=== PATIENT | female | born 1990 | race Caucasian/White ===

== ENCOUNTER 2017-06-09 11:27 | Emergency (ER) | payer MEDICAID, OTHER ==
[2017-06-09 11:50] VITALS: BP 124/80
[2017-06-09] MEDS ORDERED: ORPHENADRINE CITRATE 30 MG/ML VIAL IM ONE (11:54)
[2017-06-09] MEDS ORDERED: KETOROLAC TROMETHAMINE 60 MG/2 ML VIAL IM ONE ×2 (11:54)
[2017-06-09] MEDS ORDERED: ORPHENADRINE CITRATE 30 MG/ML VIAL ONE (11:54)
--- NOTE | 2017-06-09 12:21 | ERNOTE ---
Head Injury HPI - General Injury to: other Time Seen by Provider: 06/09/17 11:51 Source: patient Exam Limitations: no limitations - Immun/Allergies/Home Medications Immunization: IMMUNIZATION HX Immunizations Up to Date No History of Influenza Vaccine No Hx Pneumococcal Vaccination No Allergies/Adverse Reactions: Allergies Allergy/AdvReac Type Severity Reaction Status Date / Time No Known Drug Allergies Allergy Unknown Verified 04/27/14 19:11 Home Medications: HOME MEDICATIONS Cyclobenzaprine HCl [Flexeril] 10 mg PO TID PRN #30 tab 06/09/17 [Last Taken Unknown] Naproxen [Naprosyn] 500 mg PO BID #60 tablet 06/09/17 [Last Taken Unknown] - History of Present Illness Narrative: Patient was getting out of bed this morning and believe she possibly turn somewhat awkwardly and had a jarring affect in the neck. She now has difficulty turning her head in any direction and complains of muscle spasm. Rates pain as being at least moderate in severity. Occurred: just prior to arrival Location Occurred: home Severity: moderate Method of Injury: Reports: unknown Loss of Consciousness: Reports: no loss of consciousness Associated Symptoms: Reports: denies symptoms Review of Systems - Review of Systems Constitutional: Present: See HPI EYE: Present: no symptoms reported ENT: Present: no symptoms reported Respiratory: Present: no symptoms reported Cardiology: Present: no symptoms reported Gastrointestinal/Abdominal: Present: no symptoms reported Genitourinary: Present: no symptoms reported Musculoskeletal: Present: muscle stiffness, neck pain Skin: Present: no symptoms reported Neurological: Present: no symptoms reported Endocrine: Present: no symptoms reported Hematologic/Lymphatic: Present: no symptoms reported Psych: Present: no symptoms reported - Patient's Past Medical History Patient History - Medical: No pertinent hx Patient History - Cardiac/Respiratory: No pertinent hx Patient History - Cancer: No Hx of Cancer Patient History - Surgical Procedures: Orthopedic Patient History - Other: None - Social History Living Situations: home Abuse History: No History of abuse Psych History: No pertinent hx Smoking Status: Former smoker Have you smoked in the past 12 months: No Do you dip or chew tobacco: No Alcohol Use: rarely Drug Use: none - Immunizations Immunizations Up to Date: No Hx Pneumococcal Vaccination: No History of Influenza Vaccine: No Physical Exam - Physical Exam General Appearance: Present: wd/wn, alert, moderate distress Head Exam: Present: normal inspection Eye Exam: Normal inspection: bilateral, PERRL: bilateral Ears, Nose, Throat: Present: normal ENT inspection, H, normal pharynx Neck: Present: limited range of motion, other - muscle spasm Respiratory: Present: no respiratory distress, normal breath sounds, no accessory muscle use, chest nontender, lungs clear Cardiovascular/Chest: Present: regular rate, rhythm, no murmur, normal peripheral pulses Gastrointestinal/Abdominal: Present: normal bowel sounds, nontender, nondistended, soft, no organomegaly Rectal Exam: Present: deferred Back Exam: Present: normal inspection, normal range of motion Extremity Exam: Present: normal inspection, non-tender, no edema, normal range of motion Neurological Exam: Present: alert, oriented, normal mood/affect Skin Exam: Present: normal color, warm/dry Lymphatic Exam: Present: no adenopathy ED Progress - Vital Signs Patient's Vital Signs:: I have reviewed the patient's vital signs. Vital Signs: Vital Signs 06/09/17 11:43 Temperature 36.7 C Pulse Rate 78 Respiratory 18 Rate Blood Pressure 124/80 O2 Sat by Pulse 98 Oximetry - X-Ray X-Ray #1 X-Ray: c-spine Interpretation: Reviewed by me - Progress/Reassessment Chief Complaint: Neck Pain/Injury Progress:: Improved Plan - Plan Plan: Patient has a variation of torticollis only started on both nonsteroidal anti- inflammatories and muscle relaxers. Departure Clinical Impression: Acute torticollis - Departure Disposition: Home self-care Condition: Good Instructions: Acute Torticollis Prescriptions: Cyclobenzaprine HCl [Flexeril] 10 mg PO TID PRN #30 tab PRN Reason: MUSCLE SPASMS Naproxen [Naprosyn] 500 mg PO BID #60 tablet
== END 2017-06-09 12:30 | disposition home or self-care (01) ==
LOC: ER 11:27
DX: M43.6 Torticollis (principal)